=== PATIENT | male | born 1970 | race Caucasian/White ===

== ENCOUNTER 2023-04-07 14:50 | Outpatient (CLI) | payer OTHER ==
[~2023-04-07] VITALS: Ht 177.8 cm; Wt 152.0 kg
[2023-04-07 16:05] VITALS: PULSE 93; RESP 15; O2SAT 98
[2023-04-07] MEDS ORDERED: albuterol 2.5 MG/3 ML nebule NEB ONE (16:10)
== END 2023-04-07 23:59 | disposition home or self-care (01) ==
LOC: RT 14:50
PROVIDERS: ATTEND Chiropractor
DX: J45.909 Unspecified asthma, uncomplicated (principal); R94.2 Abnormal results of pulmonary function studies
CPT/HCPCS: 71046; 94060; 94760